=== PATIENT | male | born 1950 | race Caucasian/White ===

== ENCOUNTER 2019-04-28 06:16 | Observation (INO) | payer OTHER ==
[~2019-04-28] VITALS: Ht 185.4 cm; Wt 86.2 kg
--- NOTE | ~2019-04-28 | D ---
[facility] [place] [address] DISCHARGE SUMMARY Name: GALILEA ROMANO Room #: 247-P [facility] Mihai Hunt#: [id number] Admission: 04/28/19 Attend Phys: Gregor Hicks MD, Discharge: Date of : 54 Report #: [id number] THIS REPORT FOR: //name// CC: [facility] SUMMARY: The patient was admitted with some anginal symptoms, abnormal stress test and claudication. Subsequently, went to the catheterization lab for a joint procedure with myself and Dr. Burks of Interventional Radiology. Found to have a high-grade mid LAD lesion of 80-90%, successfully stented with a 2.75 x 12 Emma medicated stent. There is moderate disease in the LAD proximal to this, mild circumflex and RCA disease. Prior stent in the right was widely patent. He tolerated this well. Subsequently, left iliac and right SFA intervention by Dr. Burks, which was right SFA atherectomy and sent and left iliac stent. He has done well post-procedure. He is voicing no complaints of chest pain or anginal complaints. Hemodynamically stable. He was initiated on dual antiplatelet therapy with Effient generic prasugrel 10 mg a day. His creatinine this morning is 1.0. Troponin is negative. H and H are 13.5 and 40.4. He will be discharged to home on his home medications and the only new medication will be Effient 10 mg daily. We will want to proceed with dual antiplatelet therapy for probably at least 1 year and full aspirin for a month and a baby aspirin to drop down to, atorvastatin 40, Flexeril, Zetia 10, Bystolic 5. No lifting for 48 hours. No lying in tub, Jacuzzi or chen for a week. No MRI or dental work for 3 months. DISCHARGE DIAGNOSES: 1. Coronary artery disease with successful percutaneous transluminal coronary angioplasty stent of mid left anterior descending. 2. Peripheral vascular disease with successful intervention of left iliac and right SFA atherectomy and stent. 3. Hypertension. 4. Hypercholesterolemia. 5. Chronic obstructive pulmonary disease, continued tobacco use. 6. Degenerative joint disease. Followup will be scheduled in 3 months with myself and Dr. Burks. Thank you for allowing us to assist in the care of this patient. By: 0811 0819 /nt
[~2019-04-28 06:16] MED LIST: ASPIRIN EC81 M1 PO; ASPIRIN325 PO; BYSTOLIC 5 MG5 M1 PO; CALCIUM 500 +1 EAC5 PO; EFFIENT10 MG PO; FLEXERIL PO; LIPITOR 20 MG T20 M1 PO; MOBIC15 MG PO; MULTIVITAMINS1 EAC7 PO; NEURONTIN300 MG PO; PERCOCET; PLAVIX 75 MG TA75 M1 PO; ROBAXIN 750 MG750 MG PO
[2019-04-28 07:01] VITALS: BP 132/67
[2019-04-28 07:17] LABS: HEMOGLOBIN 14.7 gm/dL (14.0-18.0); MCH 30.6 pg (26.0-34.0); MCHC 33.5 g/dL (28.0-37.0); MCV 91.2 fL (80.0-100.0); RBC 4.82 mil/uL (4.50-6.00); RDW 14.3 % (10.5-14.5); WBC 10.4 thou/uL (4.0-11.0)
[2019-04-28 07:25] LABS: CALCIUM 9.4 mg/dL (8.5-10.1); CREATININE 1.1 mg/dL (0.7-1.3); POTASSIUM 4.1 mmol/L (3.5-5.1)
[2019-04-28] MEDS ORDERED: FLEXERIL PO (07:26)
[2019-04-28] MEDS ORDERED: ZETIA10 MG PO (07:26)
--- NOTE | 2019-04-28 08:42 | EKG ---
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
--- NOTE | 2019-04-28 15:09 | NUR ---
PT HAS KEPT LT LEG IMMOBILE SINCE HEMOSTASIS AT 1130. GROIN CHECKS HAVE BEEN DONE PER PROTOCOL. LT GROIN REMAINS SOFT WITHOUT EVIDENCE OF HEMATOMA. PT HAS HAD NO COMPLAINTS OF PAIN OR DISCOMFORT. HAS EATEN AND RESTED. WATCHING TV AT THIS TIME. PT HAS ROOM ASSIGNMENT, RM 200. THIS RN WAITING TO GIVE REPORT. VSS, NSR ON MONITOR.
[2019-04-28 15:49] VITALS: BP 131/58
--- NOTE | 2019-04-28 16:07 | NUR ---
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 IN GOOD SPIRITS, A&0X4, AMB STEADY, LEFT GROIN SITE WITHOUT HEMATOMA/BLEEDING/DRAINAGE. ON TELE. SEE SEPARATE INTERVENTIONS OR ASSESSMENTS. NO SKIN ISSUES. VS DONE AND WITHIN HIS NORM
[2019-04-28 20:36] VITALS: BP 115/77
[2019-04-29 00:18] VITALS: BP 115/63
[2019-04-29 05:04] VITALS: BP 120/63
[2019-04-29 05:11] LABS: HEMATOCRIT 40.4 % (42.0-52.0); HEMOGLOBIN 13.5 gm/dL (14.0-18.0); MCH 30.3 pg (26.0-34.0); MCHC 33.5 g/dL (28.0-37.0); MCV 90.4 fL (80.0-100.0); RBC 4.47 mil/uL (4.50-6.00); RDW 14.5 % (10.5-14.5); WBC 13.5 thou/uL (4.0-11.0)
--- NOTE | 2019-04-29 05:22 | NUR ---
RTESUMED PATIENT CARE AT 1900, PATIENT A/OX4, GROIN SITE INTACT AND DRY WITH NO HEMATOMA PRESENT, AMBULATES WITHOUT ASSISTANCE, DENIES PAIN, RESTED WELL THROUGHOUT THE NIGHT, WILL CONTINUE TO MONITOR
[2019-04-29 05:29] LABS: ALBUMIN 3.2 g/dL (3.4-5.0); ANION GAP 8 mmol/L (7-16); BUN 14 mg/dL (7-18); CALCIUM 8.6 mg/dL (8.5-10.1); CHLORIDE 105 mmol/L (98-107); CO2 26 mmol/L (21-32); GLUCOSE 88 mg/dL (74-106); SGOT 17 U/L (15-37); SGPT 30 U/L (30-65); SODIUM 139 mmol/L (136-145); TOTAL BILIRUBIN 0.7 mg/dL (<0.1-1.0); TOTAL PROTEIN 6.6 g/dL (6.4-8.2); TROPONIN-I <0.06 ng/mL (<0.06)
[2019-04-29 08:00] VITALS: BP 110/61
[2019-04-29] MEDS ORDERED: EFFIENT10 MG PO (08:11)
[2019-04-29 10:39] VITALS: BP 120/63
--- NOTE | 2019-04-29 17:27 | EKG ---
[address] [address] ELECTROCARDIOGRAM REPORT Name: GALILEA ROMANO Room #: 247-[facility].#: [id number] Admission: 04/28/19 Attend Phys: Gregor Hicks MD, Discharge: 04/29/19 Date of : 54 Report #: [id number] THIS REPORT FOR: //name// [facility] Test Date: 2019-04-28 Test Time: 12:34:08 Pat Name: GALILEA ROMANO Department: Room: 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 BANEGAS : 1950 Requested By: Gregor Hicks Order Number: [id number] MD: Tomas Rashid Measurements Intervals [place] Rate: 48 P: 16 [place]: 171 QRS: 19 QRSD: 86 T: 24 QT: 473 QTc: 423 Interpretive Statements Sinus bradycardia Abnormal R-wave progression, early transition Compared to ECG 04/28/2019 07:24:18 No significant change was found Electronically Signed On 04-29-2019 17:26:52 ELECTRICAL HIGH TENSION TESTER by Tomas Rashid [email or web address] <ELECTRONICALLY SIGNED> By: Tomas Rashid MD, [facility] 04/29/19 1726 1234 1234 Tomas Rashid MD, [facility] /EPI
--- NOTE | 2019-04-29 17:36 | EKG ---
[address] [place] [address] ELECTROCARDIOGRAM REPORT Name: GALILEA ROMANO Room #: 247-[facility].#: [id number] Admission: 04/28/19 Attend Phys: Gregor Hicks MD, Discharge: 04/29/19 Date of : 54 Report #: [id number] THIS REPORT FOR: //name// [facility] Test Date: 2019-04-29 Test Time: 07:46:40 Pat Name: GALILEA ROMANO Department: Room: [facility] Gender: M Director Of Collections And Archives: [facility] : 1950 Requested By: Gregor Hicks Order Number: [id number] MD: Tomas Rashid Measurements Intervals [place] Rate: 62 P: 3 [place]: 176 QRS: 13 QRSD: 84 T: 35 QT: 429 QTc: 436 Interpretive Statements Sinus rhythm Abnormal R-wave progression, early transition Compared to ECG 04/28/2019 07:24:18 No significant changes Electronically Signed On 04-29-2019 17:36:33 PLATEN BUILDER UP by Tomas Rashid [email or web address] <ELECTRONICALLY SIGNED> By: Tomas Rashid MD, [facility] 04/29/19 1736 0746 0746 Tomas Rashid MD, [facility] /EPI
--- NOTE | 2019-04-29 17:44 | CATHLAB ---
[facility] [address] [place] [address] INVASIVE PROCEDURE REPORT Name: ROMANOGALILEA Jamison Room #: 247-P [facility] IN [facility]#: [id number] Admission: 04/28/19 Attend Phys: Gregor Hicks, Discharge: 04/29/19 Date of : 54 Report #: [id number] THIS REPORT FOR: //name// APPROVED REPORT Study performed: 04/28/2019 08:18:21 Patient Details Patient Status: Out-Patient Room #: The patient is a 68 year-old male Event Personnel Gregor Hicks Correspondence Dictator, Marion Shields RTR, BRAILLE PROOFREADER Monitor, Sebastian Lake RTR Sekou Main Ashley RN lead sustainability specialist Performed Art Access - L femoral artery* Left Heart Cath w/or w/o Coronaries 8320065 [facility] [place] Place w/wo Plasty Single LAD 222711 81964 Initial Mod Sed Same Phys/QHP Gr5y 479388 88435 Mod Sed Same Phys/QHP Ea 094474 Indication Chest pain Procedure Narrative The Left Groin^ was infiltrated with 1% Lidocaine subcutaneous anesthesia. A SHEATH BRITE-TIP 6F X 11CM (247018) sheath was inserted into the LFA^. Coronary angiography was performed using coronary diagnostic catheters. The right coronary system was accessed and visualized with a JR4 catheter. The left coronary system was accessed and visualized with a JL4 catheter. The left ventricle was accessed and visualized with a pigtail catheter. Left ventricular/Aortic Valve gradient assessed via catheter pullback. Left ventriculogram was performed in 30 degree projection. Closure device was deployed with a 6 Fr MYNX CONTROL 6F/7F #[id number]. There was no hematoma. Intraoperative Conscious Sedation Sedation start time: 08:41 Case end Time: 11:34 Fentanyl 100 mcg Versed 2 mg Conscious sedation is a total for the left heart cath and lower extremity runoff. Fluoro dose and time are a total for the left heart cath and lower [facility] [address] [email or web address] [address] INVASIVE PROCEDURE REPORT Name: GALILEA ROMANO Room #: 247-P [facility].#: [id number] Admission: 04/28/19 Attend Phys: Gregor Hicks, Discharge: 04/29/19 Date of : 54 Report #: [id number] extremity runoff. Contrast total for left heart cath is Omnipaque 350-140ml. Fluoro Time: 20.80 minutes Dose: DAP 70967.24 cGycm2 2093 mGy Contrast Type and Amount: Visipaque 160 ml Hemodynamics The aortic pressure is 146/60 mmHg with a mean of 90 mmHg. The left ventricular pressure is 148/13 mmHg with a mean of mmHg. The left ventricular end diastolic pressure is 29 mmHg. PCI Technique Lesion Percutaneous coronary intervention was performed on the mid left anterior descending artery segment. A LAUNCHER 6FR EBU 3.5 #989228 Guide Catheter was used to engage the ostium. A Luge Wire .014 x 182CM #[id number] Interventional Guidewire was used to cross the lesion. BALLOON DILATION A Balloon catheter Sprinter OTW 2.5 x 12 #[id number] was inserted and inflated up to 8.00atm for 26seconds. Additional Inflation: 8.00atm for 16seconds. STENT DEPLOYMENT A drug-eluting stent XIENCE KIRSTY RX 2.75 X 12 #[id number] was inserted and inflated up to 14.00atm for 33seconds. Additional Inflation: 16.00atm for 30seconds. PCI Technique Lesion 2 Percutaneous Coronary Intervention was performed on the Mid com femoral. PCI Technique Lesion 3 Percutaneous Coronary Intervention was performed on the Common iliac. Conclusion #1 successful PTCA stent of high-grade mid LAD lesion to 0% with a 2.75 x 12 Kirsty drug-eluting stent 0% residual #2 dominant right coronary proximal stent is widely patent previously placed mild distal disease anatomically dominant vessel #3 left main is short free of disease giving rise to LAD and circumflex #4 circumflex OM high rising smaller marginal branch with mild [facility] [address] [place] [address] INVASIVE PROCEDURE REPORT Name: GALILEA ROMANO Room #: 247-P [facility] IN M.R.#: [id number] Admission: 04/28/19 Attend Phys: Gregor Hicks, Discharge: 04/29/19 Date of : 54 Report #: [id number] disease and then a larger circumflex OM system which is 40-50% mid vessel lesion well preserved distally. #4 the proximal RCA is widely patent then giving rise to an area of 40-50% irregularity proximal to the previously placed stent in #1. #5 normal left ventricular size and systolic function EF 55% Recommendations and plan: Continue aggressive risk factor modification. Dual antiplatelet therapy. Patient will have Christa rutledge intervention by Dr. Burks see his dictation. And will monitor overnight in CCU to follow post coronary stent protocol. <ELECTRONICALLY SIGNED> By: Gregor Hicks MD, FACC 04/29/191743 43 43 Gregor Hicks MD, FACC /INF
== END 2019-04-29 12:35 | disposition home or self-care (01) ==
LOC: CATH 06:16 → TBACV 11:39 → CATH 12:00 → 2N 15:44 → ICU 04-29 06:54
PROVIDERS: ADMIT Internal Medicine Cardiovascular Disease
DX: I70.212 Atherosclerosis of native arteries of extremities with intermittent claudication, left leg (principal); I10 Essential (primary) hypertension; E78.00 Pure hypercholesterolemia, unspecified; J44.9 Chronic obstructive pulmonary disease, unspecified; M19.90 Unspecified osteoarthritis, unspecified site

== ENCOUNTER → 2019-08-24 | Outpatient (CLI) | payer OTHER ==
[~2019-08-24] MED LIST changes: +ZETIA10 MG PO
== END ==
LOC: SJCVCIMAG 07:37
DX: R00.1 Bradycardia, unspecified (principal); I25.10 Atherosclerotic heart disease of native coronary artery without angina pectoris; I73.9 Peripheral vascular disease, unspecified; E78.00 Pure hypercholesterolemia, unspecified; M54.16 Radiculopathy, lumbar region; Z95.820 Peripheral vascular angioplasty status with implants and grafts

== ENCOUNTER → 2020-03-14 | Outpatient (CLI) | payer OTHER | LOC: SJCVCIMAG 07:28 | PROVIDERS: ATTEND Nuclear Medicine Nuclear Cardiology | DX: I65.23 Occlusion and stenosis of bilateral carotid arteries (principal); R00.1 Bradycardia, unspecified; I73.9 Peripheral vascular disease, unspecified; I25.10 Atherosclerotic heart disease of native coronary artery without angina pectoris; E78.00 Pure hypercholesterolemia, unspecified; I77.9 Disorder of arteries and arterioles, unspecified; I10 Essential (primary) hypertension; Z95.828 Presence of other vascular implants and grafts; Z72.0 Tobacco use; Z79.899 Other long term (current) drug therapy ==

== ENCOUNTER → 2020-09-26 | Outpatient (CLI) | payer OTHER | LOC: SJCVCIMAG 07:47 | PROVIDERS: ATTEND Nuclear Medicine Nuclear Cardiology | DX: I70.203 Unspecified atherosclerosis of native arteries of extremities, bilateral legs (principal); R94.31 Abnormal electrocardiogram [ECG] [EKG]; I25.10 Atherosclerotic heart disease of native coronary artery without angina pectoris; I77.9 Disorder of arteries and arterioles, unspecified; E78.00 Pure hypercholesterolemia, unspecified; I10 Essential (primary) hypertension; F17.210 Nicotine dependence, cigarettes, uncomplicated; Z95.828 Presence of other vascular implants and grafts; Z95.5 Presence of coronary angioplasty implant and graft; Z79.82 Long term (current) use of aspirin; Z79.899 Other long term (current) drug therapy; Z98.890 Other specified postprocedural states ==

== ENCOUNTER 2020-09-27 10:49 | Observation (INO) | payer OTHER ==
[~2020-09-27] VITALS: Ht 185.4 cm; Wt 86.4 kg
[2020-09-27 11:32] VITALS: BP 122/57
[2020-09-27 11:50] LABS: HEMATOCRIT 42.6 % (42.0-52.0); HEMOGLOBIN 14.9 gm/dL (14.0-18.0); MCH 32.1 pg (26.0-34.0); MCHC 34.9 g/dL (28.0-37.0); MCV 91.9 fL (80.0-100.0); RBC 4.64 mil/uL (4.50-6.00); RDW 13.9 % (10.5-14.5); WBC 10.5 thou/uL (4.0-11.0)
[2020-09-27 11:59] LABS: CALCIUM 9.1 mg/dL (8.5-10.1); POTASSIUM 4.3 mmol/L (3.5-5.1)
--- NOTE | 2020-09-27 16:57 | CATHLAB ---
[facility] [place] [address] [place] [address] INVASIVE PROCEDURE REPORT Name: GALILEA ROMANO Room #: 215-P [facility] Mihai M.R.#: [id number] Admission: 09/27/20 Attend Phys: Janes Burks MD Discharge: Date of : 54 Report #: [id number] THIS REPORT FOR: cc: Akin Saleem James L. DO Mancuso, Gerald M. MD [facility] ~ APPROVED REPORT Study performed: 09/27/2020 15:03:38 Patient Details Patient Status: Out-Patient Room #: The patient is a 69 year-old male Event Personnel Marion Shields RTR, JARRED Main, Kamala Young RN RN, Faisal Rowe RTR Monitor, Caron Aguirre Mancuso, Gerald Ethnic Studies Professor Procedures Performed Art Access - L femoral artery* Hemostasis w/ Mynx Left Heart Cath w/ or w/o Coronaries [facility] [place] Place w/wo Plasty Single LAD 792651 [address]1451 Initial Mod Sed Same Phys/QHP Gr5y 164270 85000 Mod Sed Same Phys/QHP Ea 292679 Indication Chest pain Risk Factors Peripheral Vascular Disease Procedure Narrative A SHEATH BRITE-TIP 6F X 11CM (481420) sheath was inserted into the LFA^. Coronary angiography was performed using coronary diagnostic catheters. The right coronary system was accessed and visualized with a JR4 catheter. The left coronary system was accessed and visualized with a JL4 catheter. The left ventricle was accessed and visualized with a PIGTAIL catheter. Left ventricular/Aortic Valve gradient assessed via catheter pullback. Left ventriculogram was performed in 30 degree projection. Closure device was deployed with a 6 Fr MYNX ENERGY CONSERVATION DIRECTOR. The patient tolerated the procedure well and there were no complications associated with the procedure. There was no hematoma. [facility] [place] [place] [address] INVASIVE PROCEDURE REPORT Name: GALILEA ROMANO Room #: 215-P [facility] IN ..#: [id number] Admission: 09/27/20 Attend Phys: Janes Burks, Discharge: Date of : 54 Report #: [id number] Intraoperative Conscious Sedation Sedation start time: 1404 Case end Time: 1610 Fentanyl 50 mcg Versed 1 mg This was a combined case with Dr. Janes Burks. Medications and radiation dose reflect both procedures. Fluoro Time: 13.78 minutes Dose: DAP 98890.80 cGycm2 1319 mGy Contrast Type and Amount: Visipaque 111 ml Hemodynamics The aortic pressure is 124/52 mmHg with a mean of 78 mmHg. The left ventricular pressure is 133/4 mmHg with a mean of mmHg. The left ventricular end diastolic pressure is 16 mmHg. Pullback from the left ventricle to the aorta revealed a mm gradient across the aortic valve. PCI Technique Lesion Percutaneous coronary intervention was performed on the Superficial Femoralproximal left anterior descending artery segment. A LAUNCHER 6FR EBU 3.75 #[id number] Guide Catheter was used to engage the ostium. A Luge Wire .014 x 182CM #[id number] Interventional Guidewire was used to cross the lesion. BALLOON DILATION A Balloon catheter Sprinter OTW 2.5 x 15 #[id number] was inserted and inflated up to 1.00atm for 10seconds. Additional Inflation: 14atm for 24seconds. STENT DEPLOYMENT A drug-eluting stent RESOLUTE TEENA OTW 3.0 X 26 #[id number] was inserted and inflated up to 14atm for 28seconds. Additional Inflation: 15atm for 27seconds. PCI Technique Lesion 2 Percutaneous Coronary Intervention was performed on the proximal left anterior descending artery segment. Conclusion #1. Successful PTCA stent of a long proximal LAD lesion which extended to a previously placed LAD stent which was patent 80 and 90% long lesion 3 oh by 26 resolute [place] stent postdilated 3.2 mm RANDALL grade III flow this is a large LAD which extends around the apex. This stent abuts the previously placed stent which is minimal restenosis. [facility] [address] [place] [address] INVASIVE PROCEDURE REPORT Name: GALILEA ROMANO Room #: 215-P [facility] IN .R.#: [id number] Admission: 09/27/20 Attend Phys: Janes Burks, Discharge: Date of : 54 Report #: [id number] #2 left main mild disease giving rise to LAD and circumflex. #3 circumflex is nondominant moderate in distribution there is an eccentric 50 to 60% proximal mid vessel lesion filling a large distal OM first OM also mildly diseased no indication for intervention #4 dominant right coronary artery with an eccentric 30% proximal lesion mid vessel long stent previously placed with minimal restenosis giving rise to a relatively small PDA ROGER. No occlusive disease. #5 normal left jugular size and systolic function EF 60% Conditions and plan: Continue aggressive risk factor modification dual antiplatelet therapy will be continued. To CCU in stable condition pain-free with resolution of EKG changes. Will follow the circumflex OM lesion for possible intervention later date 60 to 70% mid circumflex lesion as noted above. <ELECTRONICALLY SIGNED> By: Gregor Hicks MD, [facility] 09/27/20 1657 56 56 Gregor Hicks MD, FACC /INF
[2020-09-27 19:49] VITALS: BP 123/56
--- NOTE | 2020-09-27 20:43 | NUR ---
RECEIVED PT FROM THE DENTURE TECHNICIAN. ADMISSION COMPLETED. PT HAD LERO AND CARDIAC CATH COMPLETED, L GROIN SITE C/D/I, NO HEMATOMA. BEDREST COMPLETED, AND PT VOIDED. POC IS TO CONTINUE TO MONITOR GROIN SITE. PLAN IS TO D/C TOMORROW 09/28/20. PT VSS, AFEBRILE, SR ON MONITOR. FALL PRECAUTIONS IN PLACE. NO CONCERNS AT THIS TIME.
[2020-09-28 00:05] VITALS: BP 125/61
[2020-09-28 04:18] VITALS: BP 114/58
--- NOTE | 2020-09-28 04:56 | NUR ---
assessments as charted, no c/o pain, groin site remains cdi, vss, resting quitly in room thru the noc, hopes to go home this am, will con't to monitor per ppoc.
[2020-09-28 05:20] LABS: HEMATOCRIT 40.7 % (42.0-52.0); HEMOGLOBIN 13.7 gm/dL (14.0-18.0); MCH 31.5 pg (26.0-34.0); MCHC 33.7 g/dL (28.0-37.0); MCV 93.4 fL (80.0-100.0); RBC 4.36 mil/uL (4.50-6.00); RDW 13.6 % (10.5-14.5); WBC 12.4 thou/uL (4.0-11.0)
[2020-09-28 05:53] LABS: ALBUMIN 3.2 g/dL (3.4-5.0); ANION GAP 10 mmol/L (7-16); BUN 14 mg/dL (7-18); CALCIUM 8.8 mg/dL (8.5-10.1); CHLORIDE 109 mmol/L (98-107); CO2 26 mmol/L (21-32); CREATININE 1.1 mg/dL (0.7-1.3); GLUCOSE 92 mg/dL (74-106); POTASSIUM 4.7 mmol/L (3.5-5.1); SGOT 19 U/L (15-37); SGPT 29 U/L (30-65); SODIUM 145 mmol/L (136-145); TOTAL BILIRUBIN 0.5 mg/dL (0.2-1.0); TOTAL PROTEIN 6.4 g/dL (6.4-8.2); TROPONIN-I <0.06 ng/mL (<0.06)
[2020-09-28 07:40] VITALS: BP 145/63
--- NOTE | 2020-09-28 14:33 | EKG ---
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 : 1950 Requested By: Christa Fritz Order Number: [id number] MD: Konstantin Yancey Measurements Intervals [place] Rate: 53 P: 2 TN: 164 QRS: 24 QRSD: 91 T: 28 QT: 438 QTc: 412 Interpretive Statements Sinus rhythm Abnormal R-wave progression, early transition Compared to ECG 04/29/2019 07:46:40 No significant changes Electronically Signed On 09-28-2020 14:33:27 CDT by Konstantin Yancey [email or web address] <ELECTRONICALLY SIGNED> By: Konstantin Yancey MD, [facility] 09/28/20 1433 6 6 Konstantin Yancey MD, [facility] /EPI
== END 2020-09-28 10:35 | disposition home or self-care (01) ==
LOC: CATH 10:49 → 2N 16:52
PROVIDERS: Nurse Practitioner Adult Health; ADMIT Nuclear Medicine Nuclear Cardiology; ATTEND Nuclear Medicine Nuclear Cardiology
DX: I25.10 Atherosclerotic heart disease of native coronary artery without angina pectoris (principal); I70.211 Atherosclerosis of native arteries of extremities with intermittent claudication, right leg; I10 Essential (primary) hypertension; E78.5 Hyperlipidemia, unspecified; I63.29 Cerebral infarction due to unspecified occlusion or stenosis of other precerebral arteries; E78.00 Pure hypercholesterolemia, unspecified; I70.1 Atherosclerosis of renal artery; F17.200 Nicotine dependence, unspecified, uncomplicated; Z79.82 Long term (current) use of aspirin; Z79.899 Other long term (current) drug therapy